=== PATIENT | female | born 1995 | race Caucasian/White ===

== ENCOUNTER 2017-05-31 03:10 | Emergency (ER) | payer BC ==
[~2017-05-31] VITALS: Ht 167.6 cm; Wt 79.3 kg
[2017-05-31 03:13] VITALS: TEMP 37; Ht 167.6 cm; Wt 79.3 kg
[2017-05-31 03:32] VITALS: O2SAT 98
--- NOTE | 2017-05-31 03:56 | EMERGENCY ROOM VISIT NOTE ---
History Report prepared by Hyacinth: Osbaldo Bird Under the Supervision of: Dr. Harjit Poe D.O. First contact with patient: 03:37 Chief Complaint: CHEST PAIN Stated Complaint: CHEST PAIN Nursing Triage Summary: states hx of gastroparesis tonight p[ain got worse with radiation to chest. History of Present Illness The patient is a 22 year old female who presents to the Emergency Room with complaints of worsening abdominal pain that began suddenly 1 hour ago. She rates her pain mild in severity currently. She has a history of gastroparesis. Her pain is now radiating into her chest. She usually tries yoga poses to work the air out, but it did not help. She is currently feeling better. She denies any other symptoms at this time. Source of History: patient Onset: 1 hour ago Position: abdomen Symptom Intensity: mild Quality: pressure Timing: constant Associated Symptoms: + chest pain Note: She denies any other symptoms. Review of Systems See HPI for pertinent positives and negatives. A total of ten systems were reviewed and were otherwise negative. Past Medical & Surgical Medical Problems: (1) Gastroparesis Family History Patient reports no known family medical history. Social History Smoking Status: Never Smoker Smokeless Tobacco Use: No Alcohol Use: none Drug Use: none Marital Status: single Occupation Status: student Current/Historical Medications Scheduled Cholecalciferol (Vitamin D3), 1,000 UNIT PO DAILY Esomeprazole Magnesium (Nexium), 40 MG PO DAILY Levonorgestrel-Ethinyl Estradi (Quasense), 1 TAB PO DAILY Metoclopramide (Reglan), 10 MG PO QD Multivitamin (Multivitamin), 1 TAB PO DAILY Sertraline (Zoloft), 50 MG PO DAILY Allergies Coded Allergies: No Known Allergies (Unverified , 05/31/17) Physical Exam Vital Signs Date Time Temp Pulse Resp B/P (MAP) Pulse Ox O2 Delivery O2 Flow Rate FiO2 05/31/17 04:20 77 18 116/72 98 Room Air 05/31/17 03:35 77 18 142/78 98 Room Air 05/31/17 03:32 98 Room Air 05/31/17 03:32 98 Room Air 05/31/17 03:13 37.0 85 18 138/87 98 Room Air Physical Exam GENERAL: Awake, alert, well-appearing, in no distress HENT: Normocephalic, atraumatic. Oropharynx unremarkable. EYES: Normal conjunctiva. Sclera non-icteric. NECK: Supple. No nuchal rigidity. FROM. No JVD. RESPIRATORY: Clear to auscultation. CARDIAC: Regular rate, normal rhythm. Extremities warm and well perfused. Pulses equal. ABDOMEN: Soft, non-distended. No tenderness to palpation. No rebound or guarding. No masses. RECTAL: Deferred. MUSCULOSKELETAL: Chest examination reveals no tenderness. The back is symmetrical on inspection without obvious abnormality. There is no CVA tenderness to palpation. No joint edema. LOWER EXTREMITIES: Calves are equal size bilaterally and non-tender. No edema. No discoloration. NEURO: Normal sensorium. No sensory or motor deficits noted. SKIN: No rash or jaundice noted. Medical Decision & Procedures Laboratory Results 05/31/17 03:30 05/31/17 03:30 Test 05/31/17 03:30 05/31/17 03:39 Red Blood Count 4.75 M/uL (4.2-5.4) Mean Corpuscular Volume 85.7 fL (80-100) Mean Corpuscular Hemoglobin 26.9 pg (25-34) Mean Corpuscular Hemoglobin Concent 31.4 g/dl (32-36) RDW Standard Deviation 42.8 fL (36.4-46.3) RDW Coefficient of Variation 13.7 % (11.5-14.5) Mean Platelet Volume 10.7 fL (7.4-10.4) Anion Gap 8.0 mmol/L (3-11) Est Creatinine Clear Calc Drug Dose 122.2 ml/min Estimated GFR () 126.8 Estimated GFR (Non- 109.4 BUN/Creatinine Ratio 10.1 (10-20) Calcium Level 9.2 mg/dl (8.5-10.1) Total Bilirubin 0.3 mg/dl (0.2-1) Aspartate Amino Transf (AST/SGOT) 21 U/L (15-37) Alanine Aminotransferase (ALT/SGPT) 17 U/L (12-78) Alkaline Phosphatase 98 U/L (45-117) Total Creatine Kinase 90 U/L (26-192) Creatine Kinase MB < 0.5 ng/ml (0.5-3.6) Creatine Kinase MB Ratio (0-3.0) Total Protein 7.8 gm/dl (6.4-8.2) Albumin 3.7 gm/dl (3.4-5.0) Globulin 4.1 gm/dl (2.5-4.0) Albumin/Globulin Ratio 0.9 (0.9-2) Chemistry Specimen Hemolysis Bedside Troponin I < 0.030 ng/ml (0-0.045) ECG Indication: chest pain Rate (beats per minute): 78 Rhythm: normal sinus Findings: no acute ischemic change, other (Normal intervals, normal axis) ED Course 0337: The patient was evaluated in room B4B. A complete history and physical exam was performed. Medical Decision Differential diagnoses include gastroparesis, gastritis, anxiety, and hypoglycemia. Resting in no distress on repeat examination 4:50 AM patient improved prior to my evaluation. Patient has a history of gastroparesis is much improved Medication Reconcilliation Current Medication List: was personally reviewed by me Blood Pressure Screening Patient's blood pressure: Normal blood pressure Blood pressure disposition: Did not require urgent referral Impression Primary Impression: Midepigastric pain Scribe Attestation The scribe's documentation has been prepared under my direction and personally reviewed by me in its entirety. I confirm that the note above accurately reflects all work, treatment, procedures, and medical decision making performed by me. Departure Information Dispostion Home / Self-Care Referrals No Doctor, Assigned (PCP) Forms HOME CARE DOCUMENTATION FORM, IMPORTANT VISIT INFORMATION Patient Instructions Abdominal Pain - [facility], My [facility]
[2017-05-31 04:03] LABS: HEMATOCRIT 40.7 % (37-47); MEAN CELL VOLUME 85.7 fL (80-100); MEAN CORPUSCULAR HEMOGLOBIN 26.9 pg (25-34); MEAN CORPUSCULAR HGB CONC 31.4 g/dl (32-36); MEAN PLATELET VOLUME 10.7 fL (7.4-10.4); PLATELET COUNT 361 K/uL (130-400); RED BLOOD COUNT 4.75 M/uL (4.2-5.4); WHITE BLOOD COUNT 9.72 K/uL (4.8-10.8)
[2017-05-31] MEDS ORDERED: NXM/40 PO (04:29)
[2017-05-31] MEDS ORDERED: CHOL1000 PO (04:29)
[2017-05-31 04:30] LABS: ALB/GLOB RATIO 0.9 (0.9-2); ALKALINE PHOSPHATASE 98 U/L (45-117); ALT/SGPT 17 U/L (12-78); AST/SGOT 21 U/L (15-37); BLOOD UREA NITROGEN 8 mg/dl (7-18); BUN/CREATININE RATIO 10.1 (10-20); CALCIUM 9.2 mg/dl (8.5-10.1); CARBON DIOXIDE 25 mmol/L (21-32); CHLORIDE 108 mmol/L (98-107); CREATININE 0.78 mg/dl (0.60-1.20); GLUCOSE 97 mg/dl (70-99); POTASSIUM 3.8 mmol/L (3.5-5.1); SODIUM 141 mmol/L (136-145)
[2017-05-31] MEDS ORDERED: MULT-506 PO (04:30)
[2017-05-31] MEDS ORDERED: SERT50TA PO (04:30)
[2017-05-31] MEDS ORDERED: METO-157 PO (04:31)
[2017-05-31] MEDS ORDERED: LEVOTAB10 PO (04:31)
[2017-05-31 04:54] VITALS: BP 129/62; PULSE 68; O2SAT 98
--- NOTE | 2017-05-31 06:55 | DIAGNOSTIC IMAGING REPORT ---
CHEST ONE VIEW PORTABLE CLINICAL HISTORY: CHEST PAIN pain. Dyspnea. COMPARISON STUDY: No previous studies for comparison. FINDINGS: The bones soft tissues and hemidiaphragms are normal. The cardiomediastinal silhouette is normal. The lungs are clear. The pulmonary vasculature is normal. IMPRESSION: Negative chest. The above report was generated using voice recognition software. It may contain grammatical, syntax or spelling errors. Electronically signed by: Prem Acosta M.D. 05/31/2017 6:53 AM Dictated Date/Time: 05/31/2017 6:53 AM
== END 2017-05-31 05:22 | disposition home or self-care (01) ==
LOC: C.EDB 03:12
DX: R10.13 Epigastric pain (principal); K31.84 Gastroparesis; Z79.899 Other long term (current) drug therapy

== ENCOUNTER 2017-07-16 15:05 | Observation (INO) | payer BC ==
[~2017-07-16] VITALS: Ht 167.6 cm; Wt 94.2 kg
[~2017-07-16 15:05] MED LIST: CHOL1000 PO; LEVOTAB10 PO; METO-157 PO; MULT-506 PO; NXM/40 PO; SERT50TA PO
[2017-07-16 15:14] VITALS: Ht 167.6 cm; Wt 94.2 kg
[2017-07-16 15:43] LABS: BASO % 0.5 %; BASO ABS # 0.06 K/uL (0-0.2); COMPLETE YES; EOS % 0.3 %; HEMATOCRIT 39.8 % (37-47); IG% 0.1 %; LYMPH % 18.2 %; LYMPH ABS # 2.01 K/uL (1.2-3.4); MEAN CELL VOLUME 84.1 fL (80-100); MEAN CORPUSCULAR HEMOGLOBIN 27.1 pg (25-34); MEAN CORPUSCULAR HGB CONC 32.2 g/dl (32-36); MEAN PLATELET VOLUME 10.5 fL (7.4-10.4); MONO % 5.1 %; NEUT % 75.8 %; PLATELET COUNT 310 K/uL (130-400); RED BLOOD COUNT 4.73 M/uL (4.2-5.4); WHITE BLOOD COUNT 11.03 K/uL (4.8-10.8)
[2017-07-16 16:01] LABS: BUN/CREATININE RATIO 10.3 (10-20); CREATININE 0.67 mg/dl (0.60-1.20); POTASSIUM 3.5 mmol/L (3.5-5.1)
[2017-07-16] MEDS ORDERED: BCPILLS PO (16:01)
[2017-07-16 16:11] LABS: ALB/GLOB RATIO 0.9 (0.9-2); THYROID STIMULATING HORMONE 1.33 uIu/ml (0.300-4.500)
--- NOTE | 2017-07-16 16:12 | DIAGNOSTIC IMAGING REPORT ---
HEAD CT NONCONTRAST CT DOSE: 638.56 mGycm HISTORY: seizure activity, no history TECHNIQUE: Multiaxial CT images of the head were performed without the use of intravenous contrast. Automated exposure control was utilized for this study. A dose lowering technique was utilized adhering to the principles of ALARA. Comparison: None. Findings: The paranasal sinuses and mastoid air cells are clear. The calvarium and skull base are intact. The ventricles and sulci are within normal limits. There is no mass, hematoma, midline shift, or acute infarct. Impression: No acute intracranial abnormality. If this is the patient's first reported seizure, then consider follow-up nonemergent brain MRI for further evaluation. Electronically signed by: Julio Sandoval M.D. 07/16/2017 4:11 PM Dictated Date/Time: 07/16/2017 4:06 PM
--- NOTE | 2017-07-16 16:23 | EMERGENCY ROOM VISIT NOTE ---
History First contact with patient: 15:14 Chief Complaint: SEIZURE Stated Complaint: SEIZURE Nursing Triage Summary: Patient arrived [facility] omplaints of seizure activity. Per ems report, the patient was in class, laid down on the floor and the classmates surrounding her stated she had seizure like activity for about 10-15 minutes. EMS arrived on scene and patient was 3-4 min. post ictal/lucid at this time and then began having another seizure that lasted roughly 1.5 minutes. Seizures stopped when ems started iv access. Patient has history of gastroparesis, hypoglycemia, and IBS. Patient denies seizre history. Patient states "I just feel weak and tired now." History of Present Illness The patient is a 22 year old female who presents to the Emergency Room via ALS for evaluation of seizure-like activity. Most of the history is obtained by EMS. Per EMS report, the patient was in class and laid down on the floor. Classmates reported that she had seizure-like activity for approximately 10-15 minutes. EMS then arrived on scene and stated that the patient seemed to be postictal, but did answer questions appropriately at that time. They reported that she had additional seizure activity which lasted 1.5 minutes and resolved when they started IV access. The patient denies any memory of the event. She reports that she does not remember being in the class, and her last memory was being in the class prior to that. The patient denies any history of seizures. She states that she feels slightly tired at this time, but has no other complaints. She denies any headaches, neck pain/stiffness, numbness, weakness, chest pain, shortness of breath, fevers, or recent illnesses. She denies any drug or alcohol use. The patient reports a history of gastroparesis, hypoglycemic episodes and IBS. A BSG was checked by EMS and was 71. The patient does report that she has a history of syncopal episodes and reports that she usually feels these coming on and lays on the floor. There was no incontinence. Review of Systems A complete 10 point review of systems was reviewed with the patient with pertinent positives and negatives as per history of present illness. All else were negative. Past Medical/Surgical History Medical Problems: (1) Depression with anxiety (2) Gastroparesis (3) GERD (gastroesophageal reflux disease) (4) Hypoglycemia (5) IBS (irritable bowel syndrome) (6) Seizure-like activity Surgical Problems: (1) H/O esophagogastroduodenoscopy (2) S/P appendectomy (3) S/P cholecystectomy Family History Patient reports no known family medical history. Social History Smoking Status: Never Smoker Alcohol Use: none Drug Use: none Marital Status: single Occupation Status: student Current/Historical Medications Scheduled Control Pills ( Control Pills), 1 TAB PO HS Cholecalciferol (D 5000), 1 TAB PO HS Esomeprazole Magnesium (Nexium), 40 MG PO HS Ferrous Sulfate (Hm Iron Slow Release), 1 TAB PO HS Metoclopramide Hcl (Reglan), 5 MG PO HS Multivitamin (Multivitamin), 1 TAB PO HS Potassium Chloride (K-Tabs), 10 MEQ PO HS Sertraline (Zoloft), 100 MG PO HS Scheduled PRN Erythromycin (Erythromycin), 1-2 TABS PO BID PRN for Nausea or Vomiting Ondansetron Hcl (Zofran), 4 MG PO UD PRN for Nausea Physical Exam Vital Signs Date Time Temp Pulse Resp B/P (MAP) Pulse Ox O2 Delivery O2 Flow Rate FiO2 07/16/17 19:28 94 07/16/17 18:42 91 16 124/91 98 Room Air 07/16/17 16:54 86 16 138/69 95 Room Air 07/16/17 15:26 93 07/16/17 15:14 95 Room Air 07/16/17 15:14 37.0 94 18 121/93 96 Room Air Physical Exam VITALS: Vitals are noted on the nurse's note and reviewed by myself. Vital signs stable. GENERAL: This is a 22-year-old female, in no acute distress, nondiaphoretic, well-developed well-nourished. SKIN: The skin was without rashes, erythema, edema, or bruising. HEAD: Normocephalic atraumatic. EARS: External auditory canals clear, tympanic membranes pearly mortensen without erythema or effusion bilaterally. EYES: Pupils equal round and reactive to light and accommodation. Conjunctivae without injection, sclerae without icterus. Extraocular movements intact. MOUTH: Mucous membranes moist. Tonsils are not enlarged. Pharynx without erythema or exudate. No lacerations of the tongue or cheek. NECK: Supple without nuchal rigidity. No lymphadenopathy. HEART: Regular rate and rhythm without murmurs gallops or rubs. LUNGS: Clear to auscultation bilaterally without wheezes, rales or rhonchi. MUSCULOSKELETAL: Full range of motion throughout. Strength 5/5 throughout. NEURO: Patient was alert and oriented to person place and time. Normal sensation to light and sharp touch. No focal neurological deficits. Medical Decision & Procedures ER Provider Diagnostic Interpretation: HEAD CT NONCONTRAST CT DOSE: 638.56 mGycm HISTORY: seizure activity, no history TECHNIQUE: Multiaxial CT images of the head were performed without the use of intravenous contrast. Automated exposure control was utilized for this study. A dose lowering technique was utilized adhering to the principles of ALARA. Comparison: None. Findings: The paranasal sinuses and mastoid air cells are clear. The calvarium and skull base are intact. The ventricles and sulci are within normal limits. There is no mass, hematoma, midline shift, or acute infarct. Impression: No acute intracranial abnormality. If this is the patient's first reported seizure, then consider follow-up nonemergent brain MRI for further evaluation. Laboratory Results 07/16/17 15:35 Test 07/16/17 15:35 07/16/17 16:16 07/16/17 16:46 Immature Granulocyte % (Auto) 0.1 % White Blood Count 11.03 K/uL (4.8-10.8) Red Blood Count 4.73 M/uL (4.2-5.4) Hemoglobin 12.8 g/dL (12.0-16.0) Hematocrit 39.8 % (37-47) Mean Corpuscular Volume 84.1 fL (80-100) Mean Corpuscular Hemoglobin 27.1 pg (25-34) Mean Corpuscular Hemoglobin Concent 32.2 g/dl (32-36) Platelet Count 310 K/uL (130-400) Mean Platelet Volume 10.5 fL (7.4-10.4) Neutrophils (%) (Auto) 75.8 % Lymphocytes (%) (Auto) 18.2 % Monocytes (%) (Auto) 5.1 % Eosinophils (%) (Auto) 0.3 % Basophils (%) (Auto) 0.5 % Neutrophils # (Auto) 8.36 K/uL (1.4-6.5) Lymphocytes # (Auto) 2.01 K/uL (1.2-3.4) Monocytes # (Auto) 0.56 K/uL (0.11-0.59) Eosinophils # (Auto) 0.03 K/uL (0-0.5) Basophils # (Auto) 0.06 K/uL (0-0.2) Immature Granulocyte # (Auto) 0.01 K/uL (0.00-0.02) Anion Gap 9.0 mmol/L (3-11) Est Creatinine Clear Calc Drug Dose 154.9 ml/min Estimated GFR () 146.7 Estimated GFR (Non- 126.5 BUN/Creatinine Ratio 10.3 (10-20) Calcium Level 9.0 mg/dl (8.5-10.1) Magnesium Level 2.1 mg/dl (1.8-2.4) Total Bilirubin 0.5 mg/dl (0.2-1) Aspartate Amino Transf (AST/SGOT) 12 U/L (15-37) Alanine Aminotransferase (ALT/SGPT) 15 U/L (12-78) Alkaline Phosphatase 85 U/L (45-117) Total Creatine Kinase 63 U/L (26-192) Total Protein 8.0 gm/dl (6.4-8.2) Albumin 3.8 gm/dl (3.4-5.0) Globulin 4.2 gm/dl (2.5-4.0) Albumin/Globulin Ratio 0.9 (0.9-2) Thyroid Stimulating Hormone (TSH) 1.330 uIu/ml (0.300-4.500) Prolactin 4.13 ng/mL Human Chorionic Gonadotropin, Qual NEG (NEG) Urine Color YELLOW Urine Appearance CLEAR (CLEAR) Urine pH 7.5 (4.5-7.5) Urine Specific Garrison 1.014 (1.000-1.030) Urine Protein NEG (NEG) Urine Glucose (UA) NEG (NEG) Urine Ketones NEG (NEG) Urine Occult Blood NEG (NEG) Urine Nitrite NEG (NEG) Urine Bilirubin NEG (NEG) Urine Urobilinogen NEG (NEG) Urine Leukocyte Esterase NEG (NEG) Urine Test NEG (NEG) Bedside Troponin I < 0.030 ng/ml (0-0.045) Urine Opiates Screen NEG (NEG) Urine Methadone, Qualitative NEG (NEG) Urine Barbiturates NEG (NEG) Urine Phencyclidine (PCP) Level NEG (NEG) Ur Amphetamine/Methamphetamine NEG (NEG) MDMA (Ecstasy) Screen NEG (NEG) Urine Benzodiazepines Screen NEG (NEG) Urine Cocaine Metabolite NEG (NEG) Urine Marijuana (THC) POS (NEG) ECG Rate (beats per minute): 83 Rhythm: normal sinus (sinus arrhythmia) Findings: no acute ischemic change, no ectopy Change: no significant change ED Course The patient was evaluated as above. Labs were drawn and IV access was obtained. CT of the head was performed and read by radiology as above. The patient was reevaluated and has no complaints. A meal tray was ordered. Patient began complaining of stabbing chest pain. [id number] troponin was ordered. The patient was then reevaluated by myself and states that this chest pain has completely resolved without treatment. The patient's case was discussed with Dr. Ricks. She recommended admission, as the patient has not technically had 2 seizures and the first lasted for greater than 10 minutes, which meets criteria for status epilepticus. Case was discussed with the [facility] hospitalist, Starla Espinoza. They agreed to evaluate the patient for admission. Medical Decision Differential diagnosis includes seizure disorder, malignancy, mass, infection, hypoglycemia, syncope, pseudoseizure, among others. The patient is a 22-year-old female who presents today complaining of possible seizure. Labs revealed mild leukocytosis, likely stress related. No other significant laboratory abnormalities. Urinalysis was not suggestive of infection. Urine was negative. EKG was interpreted by myself and shows a normal sinus rhythm. CT of the head was unremarkable. There is no evidence of infection on exam. Patient is not hypoglycemic. She had no recurrent seizure-like activity during her ED stay. I did speak with the neurologist oncology transplant network manager who recommended admission for further work up of this. Consultation was made with the hospitalist service, who admitted the patient for further evaluation and care. Medication Reconcilliation Current Medication List: was personally reviewed by me Blood Pressure Screening Patient's blood pressure: Normal blood pressure Impression Primary Impression: Seizure Departure Information Referrals No Doctor, Assigned (PCP) Patient Instructions My [facility]
[2017-07-16 16:46] LABS: PREG INTERNAL NEGATIVE QC NEG CLEAR BACKGROUND; PREG INTERNAL POSITIVE QC POS CONTROL LINE
[2017-07-16 17:25] LABS: URINE APPEARANCE CLEAR (CLEAR); URINE BILIRUBIN NEG (NEG); URINE COLOR YELLOW; URINE NITRITE NEG (NEG); URINE PH 7.5 (4.5-7.5); URINE SPECIFIC GRAVITY 1.014 (1.000-1.030); UROBILINOGEN NEG (NEG); ZZUR CULT IF INDIC CLEAN CATCH NO
[2017-07-16 17:38] LABS: MANUAL MICROSCOPIC REQUIRED? NO; REVIEW REQ? NO
[2017-07-16] MEDS ORDERED: ENOXAPARIN 40 MG/0.4 ML SYR SC SCH (19:45)
[2017-07-16] MEDS ORDERED: MCRK/10 PO (19:59)
[2017-07-16] MEDS ORDERED: FERR1TAB PO (19:59)
[2017-07-16] MEDS ORDERED: SERT-234 PO (19:59)
[2017-07-16] MEDS ORDERED: METO1TAB54 PO (19:59)
[2017-07-16] MEDS ORDERED: ERYCHP PO (19:59)
[2017-07-16] MEDS ORDERED: METO5TAB3 PO (19:59)
[2017-07-16] MEDS ORDERED: ONDA4TAB46 PO (19:59)
[2017-07-16] MEDS ORDERED: CHOLCAP10 PO (19:59)
[2017-07-16 20:30] LABS: BENZODIAZEPINE, URINE NEG (NEG); COCAINE,URINE NEG (NEG); PHENCYCLIDINE, URINE NEG (NEG)
[2017-07-16] MEDS ORDERED: ONDANSETRON 4 MG TAB PO PRN (20:30)
[2017-07-16] MEDS ORDERED: ERYTHROMYCIN DELAYED RELEASE 250 MG CAP PO PRN (20:30)
[2017-07-16 20:50] VITALS: BP 129/77; PULSE 95; TEMP 36.9; O2SAT 98
[2017-07-16] MEDS ORDERED: POTASSIUM CHLORIDE 10 MEQ TABCR PO SCH (21:00)
[2017-07-16] MEDS ORDERED: METOCLOPRAMIDE HCL 5 MG TAB PO SCH (21:00)
[2017-07-16] MEDS ORDERED: FERROUS SULFATE 325 MG TAB PO SCH (21:00)
[2017-07-16] MEDS ORDERED: SERTRALINE HCL 100 MG TAB PO SCH (21:00)
[2017-07-16] MEDS ORDERED: CHOLECALCIFEROL 1000 INTER.UNIT TAB PO SCH (21:00)
[2017-07-16] MEDS ORDERED: MULTIVITAMIN TAB PO SCH (21:00)
[2017-07-16] MEDS ORDERED: IV FLUIDS COMPLETED PRN (21:15)
[2017-07-16] MEDS ORDERED: DEXTROSE 50% 50 ML SYR IV PRN (21:15)
[2017-07-16] MEDS ORDERED: GLUCOSE 10 TABS/TUBE PO PRN (21:15)
[2017-07-16] MEDS ORDERED: GLUCAGON FOR INJ 1 MG VIAL SQ PRN (21:15)
[2017-07-16] MEDS ORDERED: GLUCOSE 40% GEL 15 GM TUBE PO PRN (21:15)
--- NOTE | 2017-07-16 21:19 | History and Physical ---
History & Physical Date & Time of Service: Jul 16, 2017 at 19:59 Chief Complaint: Seizure Primary Care Physician: No Doctor, Assigned History of Present Illness Source: patient, clinic records, EMS This is a 22 y/o fmeale with PMH of gastroparesis, GERD, IBS, hypoglycemic episodes, who presents to the ED by ambulance for seizure like activity. Pt does not recall the episodes. She lasts remembers going to her 1st class today. Does not remember leaving 1st class and going to 2nd class. Pt states in her 2nd class her friend witnessed her standing up and laying herself on the floor. Per ER provider, EMS reported that classmates witnessed her having 10-15 minutes of seizure like activity. Reportedly when EMS arrived she was postictal then had additional 1.5 minutes of seizure activity. No meds were administered. There was no tongue biting or incontinence. Glucose was 71 in the field. The next thing patient remembers is awakening in the ambulance, feeling cold and tired. She reports feeling better after eating and resting in ER. She had not eaten anything earlier today. Pt has ongoing frequent nausea and vomiting, last episode 1-2 nights ago. Pt states 4 years ago she had weight loss and nausea and was diagnosed with gastroparesis. Has seen multiple GI providers, one being [facility], does not recall others. Pt reports hypoglycemic episodes for past 2 years. She states every few weeks she feels lightheaded and clammy, lays herself down, ? loses consciousness, but starts to "come to" when she drinks orange juice. Her blood sugar is low with the episodes, 40 at the lowest. She states she has been worked up with EKG's and labs. Pt does not recall having a brain MRI in the past. No known hx of seizures. Pt has been stressed about exams this week but otherwise anxiety and depression have been controlled. Pt denies headache, neck pain or stiffness, vision change, focal weakness or numbness, fever, URI symptoms, cough, SOB, chest pain, palpitations abdominal pain, diarrhea, constipation, dysuria, frequency, urgency, arthralgias. Pt was hospitalized at [facility] in summer 2016 but does not recall the details. Past Medical/Surgical History Medical Problems: (1) Depression with anxiety Status: Chronic (2) Gastroparesis Status: Chronic (3) GERD (gastroesophageal reflux disease) Status: Chronic (4) Hypoglycemia Status: Chronic (5) IBS (irritable bowel syndrome) Status: Chronic Surgical Problems: (1) H/O esophagogastroduodenoscopy Status: Chronic (2) S/P appendectomy Status: Chronic (3) S/P cholecystectomy Status: Chronic Family History FH: seizures MATERNAL COUSIN Social History Smoking Status: Never Smoker Alcohol Use: none Drug Use: marijuana (last marijuana use 2-3 days ago. denies any other illicit drugs. ) Marital Status: single Housing status: lives with significant other (with boyfriend) Occupational Status: [employer] student Allergies Coded Allergies: No Known Allergies (Unverified , 05/31/17) Home Medications Scheduled Control Pills ( Control Pills), 1 TAB PO HS Cholecalciferol (D 5000), 1 TAB PO HS Esomeprazole Magnesium (Nexium), 40 MG PO HS Ferrous Sulfate (Hm Iron Slow Release), 1 TAB PO HS Metoclopramide Hcl (Reglan), 5 MG PO HS Multivitamin (Multivitamin), 1 TAB PO HS Potassium Chloride (K-Tabs), 10 MEQ PO HS Sertraline (Zoloft), 100 MG PO HS Scheduled PRN Erythromycin (Erythromycin), 1-2 TABS PO BID PRN for Nausea or Vomiting Ondansetron Hcl (Zofran), 4 MG PO UD PRN for Nausea Review of Systems Ten systems reviewed and negative except as noted in HPI. Physical Exam Vital Signs Date Time Temp Pulse Resp B/P (MAP) Pulse Ox O2 Delivery O2 Flow Rate FiO2 07/16/17 19:28 94 07/16/17 18:42 91 16 124/91 98 Room Air 07/16/17 16:54 86 16 138/69 95 Room Air 07/16/17 15:26 93 07/16/17 15:14 95 Room Air 07/16/17 15:14 37.0 94 18 121/93 96 Room Air General Appearance: WD/WN, no apparent distress Head: normocephalic, atraumatic Eyes: normal inspection, PERRL, EOMI, sclerae normal ENT: normal ENT inspection (normal external ears, nose, lips), hearing grossly normal, pharynx normal, + pertinent finding (no evidence of tongue trauma) Neck: supple, trachea midline Respiratory/Chest: lungs clear, normal breath sounds, no respiratory distress, no accessory muscle use Cardiovascular: regular rate, rhythm, no murmur Abdomen/GI: normal bowel sounds, non tender, soft Extremities/Musculoskelatal: no calf tenderness, no pedal edema Neurologic/Psych: community administrator II-XII nml as tested, no motor/sensory deficits, alert, normal mood/affect, oriented x 3 Skin: normal color, warm/dry Diagnostics Laboratory Results Results Past 24 Hours Test 07/16/17 15:35 07/16/17 16:16 07/16/17 16:46 Range/Units White Blood Count 11.03 4.8-10.8 K/uL Red Blood Count 4.73 4.2-5.4 M/uL Hemoglobin 12.8 12.0-16.0 g/dL Hematocrit 39.8 37-47 % Mean Corpuscular Volume 84.1 80-100 fL Mean Corpuscular Hemoglobin 27.1 25-34 pg Mean Corpuscular Hemoglobin Concent 32.2 32-36 g/dl Platelet Count 310 130-400 K/uL Mean Platelet Volume 10.5 7.4-10.4 fL Neutrophils (%) (Auto) 75.8 % Lymphocytes (%) (Auto) 18.2 % Monocytes (%) (Auto) 5.1 % Eosinophils (%) (Auto) 0.3 % Basophils (%) (Auto) 0.5 % Neutrophils # (Auto) 8.36 1.4-6.5 K/uL Lymphocytes # (Auto) 2.01 1.2-3.4 K/uL Monocytes # (Auto) 0.56 0.11-0.59 K/uL Eosinophils # (Auto) 0.03 0-0.5 K/uL Basophils # (Auto) 0.06 0-0.2 K/uL RDW Standard Deviation 42.3 36.4-46.3 fL RDW Coefficient of Variation 13.8 11.5-14.5 % Immature Granulocyte % (Auto) 0.1 % Immature Granulocyte # (Auto) 0.01 0.00-0.02 K/uL Sodium Level 141 136-145 mmol/L Potassium Level 3.5 3.5-5.1 mmol/L Chloride Level 110 98-107 mmol/L Carbon Dioxide Level 22 21-32 mmol/L Anion Gap 9.0 3-11 mmol/L Blood Urea Nitrogen 7 7-18 mg/dl Creatinine 0.67 0.60-1.20 mg/dl Est Creatinine Clear Calc Drug Dose 154.9 ml/min Estimated GFR () 146.7 Estimated GFR (Non- 126.5 BUN/Creatinine Ratio 10.3 10-20 Random Glucose 78 70-99 mg/dl Calcium Level 9.0 8.5-10.1 mg/dl Magnesium Level 2.1 1.8-2.4 mg/dl Total Bilirubin 0.5 0.2-1 mg/dl Aspartate Amino Transf (AST/SGOT) 12 15-37 U/L Alanine Aminotransferase (ALT/SGPT) 15 12-78 U/L Alkaline Phosphatase 85 45-117 U/L Total Protein 8.0 6.4-8.2 gm/dl Albumin 3.8 3.4-5.0 gm/dl Globulin 4.2 2.5-4.0 gm/dl Albumin/Globulin Ratio 0.9 0.9-2 Thyroid Stimulating Hormone (TSH) 1.330 0.300-4.500 uIu/ml Human Chorionic Gonadotropin, Qual NEG NEG Urine Color YELLOW Urine Appearance CLEAR CLEAR Urine pH 7.5 4.5-7.5 Urine Specific [place] 1.014 1.000-1.030 Urine Protein NEG NEG Urine Glucose (UA) NEG NEG Urine Ketones NEG NEG Urine Occult Blood NEG NEG Urine Nitrite NEG NEG Urine Bilirubin NEG NEG Urine Urobilinogen NEG NEG Urine Leukocyte Esterase NEG NEG Urine Test NEG NEG Bedside Troponin I < 0.030 0-0.045 ng/ml Diagnostic Radiology HEAD CT NONCONTRAST CT DOSE: 638.56 mGycm HISTORY: seizure activity, no history TECHNIQUE: Multiaxial CT images of the head were performed without the use of intravenous contrast. Automated exposure control was utilized for this study. A dose lowering technique was utilized adhering to the principles of ALARA. Comparison: None. Findings: The paranasal sinuses and mastoid air cells are clear. The calvarium and skull base are intact. The ventricles and sulci are within normal limits. There is no mass, hematoma, midline shift, or acute infarct. Impression: No acute intracranial abnormality. If this is the patient's first reported seizure, then consider follow-up nonemergent brain MRI for further evaluation. EKG sinus rhythm with sinus arrhythmia, 83 bpm, no significant change from prior EKG May 31 2017, as confirmed by cardiology read, also interpreted by me Impression Assessment and Plan NEW ONSET SEIZURE ACTIVITY Reportedly had 10-15 minute episode of seizure activity witnessed by classmates , then 1.5 minute episode witnessed by EMS, however no tongue biting or incontinence Labs- BSG 71 per EMS and random glucose 78 in ER, electrolytes wnl, TSH wnl, drug screen + marijuana, otherwise negative CT head- no acute findings Pt takes multiple meds which can have side effect of seizure (Zoloft, Zofran PRN , Reglan, erythromycin PRN), OK to continue these as per neuro Consult neurology; discussed with Dr. Ricks, appreciate input, will obtain EEG, MRI brain, check CK and prolactin, would load with Keppra if develops another seizure episode Seizure precautions HYPOGLYCEMIC EPISODES Unclear workup in the past- pt is new to Dr. Brown, was seeing [facility] previously- will obtain records; hospitalized at [facility] in February or March 2017- will obtain records Random glucose is 78 in ER Monitor BSG q4h, hypoglycemic protocol PRN GASTROPARESIS Has seen multiple GI providers, in remote past saw [facility] for IBS Continue PRN Zofran, PRN erythromycin Hold Reglan as per Dr. Brown's note (was d/c'ed 07/15/17 due to termite control representative risk of tardive dyskinesia, however patient is still taking) States Dr. Brown has placed referral for [facility] GERD Continue PPI DEPRESSION/ ANXIETY Continue Zoloft DVT PROPHYLAXIS Ambulatory/SCDs DISPOSITION Observation telemetry PCP is Dr. Brown Patient seen in collaboration with Dr. Coreas. Please see her addendum. ADDENDUM: I have seen and examined the patient and agree with the assessment and plan as above. Boyfriend who lives with her reports a 10 minute episode similar to today's episode that occurred two months ago where she was on the floor, not responsive, and her eyes were shaking. This is a situation that has been going on with her since she has had the low blood sugar episodes. She denies workup by an Endo in the past for the hypoglycemia--would be important here in the setting of seizures. She also has idiopathic gastroparesis for the last two years for which she takes Reglan consistently, another possible cause for problem. This was initially held, but she reports getting violently ill without it and requested it tonight. Will defer management to Dr. Ricks. Wet read of brain MRI looks clear. Physical exam is unremarkable-very bright girl with no neuro deficits. She is positive for MJ and smokes this regularly which I did not go into in front of her family. This may be another possible etiology of symptoms, especially if laced with something? Boyfriend doesn't think she manages her stress level well and this is associated with her nausea. Pt states that she knows coping strategies and is yoga certified. Main driving factor of her stress level is being in the dark about her medical issues and not knowing what to expect on any given day. Urged her to stay with consistent PCP-Dr. Brown. Plans to see Gastroparesis specialist at [facility]. No AEDs at this time unless further seizure activity overnight. Plan for EEG in am. Joss, DO Level of Care Telemetry Resuscitation Status FULL RESUSCITATION VTE Prophylaxis VTE Risk Assessment Done? Y/N: Yes Risk Level: Moderate Given or contraindicated: SCD's
[2017-07-16] MEDS: ACETAMINOPHEN 325 MG TAB PO PRN (21:29)
[2017-07-16] MEDS ORDERED: GADAVIST IV PRN (22:25)
[2017-07-16] MEDS ORDERED: METOCLOPRAMIDE HCL 5 MG TAB PO ONE (23:30)
[2017-07-16 23:32] VITALS: BP 130/85; PULSE 86; TEMP 36.5; O2SAT 97
[2017-07-16 23:37] LABS: HEMATOCRIT 36.4 % (37-47); MEAN CELL VOLUME 83.9 fL (80-100); MEAN CORPUSCULAR HEMOGLOBIN 27.9 pg (25-34); MEAN CORPUSCULAR HGB CONC 33.2 g/dl (32-36); MEAN PLATELET VOLUME 10.1 fL (7.4-10.4); PLATELET COUNT 298 K/uL (130-400); RED BLOOD COUNT 4.34 M/uL (4.2-5.4); WHITE BLOOD COUNT 10.86 K/uL (4.8-10.8)
[2017-07-16 23:45] LABS: PROTHROMBIN TIME (PATIENT) 10.4 SECONDS (9.0-12.0)
[2017-07-17] VITALS (9 sets, daily range): BP systolic 115–128; BP diastolic 76–80; PULSE 80–95; TEMP 36.5–37; O2SAT 91–98
--- NOTE | 2017-07-17 00:15 | DIAGNOSTIC IMAGING REPORT ---
BRAIN COMBO FOR SEIZURE HISTORY: 22 years-old Female seizure acute seizure with headache COMPARISON: CT head of same day TECHNIQUE: Multiplanar multisequence MRI of the brain was obtained both with and without the use of 9.4 mL Gadavist utilizing institutional seizure protocol FINDINGS: No restricted diffusion to suggest acute ischemia. Midline structures including the corpus callosum, brainstem, optic chiasm, infundibulum, pituitary and pineal gland are unremarkable in the sagittal T1 sequence. No cerebellar tonsillar herniation. Imaged cervical spine appears unremarkable. No acute intracranial hemorrhage, midline shift, abnormal extra-axial collections or hydrocephalus. There is a focal area of cortically based somewhat bubbly appearing circumscribed increased T2/FLAIR signal noted within the paracentral left frontal lobe near the vertex as seen on image 20 of series 5 and image 15 of series 8 demonstrating slightly decreased T1 signal measuring 0.9 x 0.5 x 0.8 cm without appreciable enhancement or calcifications. No additional focal signal abnormalities of the brain parenchyma. Bilateral hippocampi appear normal. No evidence of mesial temporal sclerosis. Major flow voids at the level of the skull base appear normal. Moderate polypoid mucosal thickening of the inferior left maxillary sinus. Mild posterior right ethmoid sinus disease. Mastoid air cells are clear. Scalp and soft tissues are unremarkable. IMPRESSION: 1. 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 Neurological consultation recommended. 2. No restricted diffusion, midline shift or significant edema The above report was generated using voice recognition software. It may contain grammatical, syntax or spelling errors. Electronically signed by: Manpreet Rebolledo M.D. 07/17/2017 12:14 AM Dictated Date/Time: 07/16/2017 11:38 PM
[2017-07-17] MEDS: ACETAMINOPHEN 325 MG TAB PO PRN ×2 (05:49→15:30)
[2017-07-17 06:16] LABS: BLOOD UREA NITROGEN 6 mg/dl (7-18); BUN/CREATININE RATIO 10.4 (10-20); CALCIUM 8.9 mg/dl (8.5-10.1); CARBON DIOXIDE 22 mmol/L (21-32); CHLORIDE 110 mmol/L (98-107); CREATININE 0.62 mg/dl (0.60-1.20); GLUCOSE 84 mg/dl (70-99); MAGNESIUM 2.3 mg/dl (1.8-2.4); POTASSIUM 3.7 mmol/L (3.5-5.1); SODIUM 140 mmol/L (136-145)
[2017-07-17 07:15] LABS: HEMATOCRIT 37.1 % (37-47); MEAN CELL VOLUME 84.5 fL (80-100); MEAN CORPUSCULAR HEMOGLOBIN 27.3 pg (25-34); MEAN CORPUSCULAR HGB CONC 32.3 g/dl (32-36); MEAN PLATELET VOLUME 10.6 fL (7.4-10.4); PLATELET COUNT 312 K/uL (130-400); RED BLOOD COUNT 4.39 M/uL (4.2-5.4); WHITE BLOOD COUNT 8.91 K/uL (4.8-10.8)
[2017-07-17] MEDS ORDERED: JUNEL FE PO SCH (09:00)
[2017-07-17] MEDS ORDERED: PANTOprazole SOD 40 MG TAB PO SCH (09:00)
[2017-07-17] MEDS ORDERED: LORAZEPAM INJ 1 MG in SYRINGE 0.5 ML IV PRN (09:45)
--- NOTE | 2017-07-17 09:49 | ELECTROENCEPHALOGRAPH REPORT ---
REQUESTING PHYSICIAN: Demetris West MD CLINICAL DIAGNOSIS: Possible seizure activity. ELECTROENCEPHALOGRAM DIAGNOSIS: Essentially normal during wakefulness. DESCRIPTION OF TRACING: This EEG was done as a bedside recording and was of good technical quality. There were few muscle movement artifacts captured both by video analysis and on the EEG itself. Photic stimulation is the only stimulus parameter utilized. Hyperventilation was not performed. Drowsiness and light sleep were not obtained. Under these conditions, there is evidence for a normal appearing background rhythm in the alpha range which is of up to 50 microvolts of maximum amplitude and 10-11 Hz of maximum frequency. This is slightly higher in amplitude over the right posterior head regions but is otherwise bilaterally symmetrical and maximum in these zones. Mid frequency to upper frequency modest voltage theta activity is seen over the central regions without further regional or focal predominance. Anterior head region maximum bilaterally symmetrical low voltage fast activity in the beta range is present. Photic stimulation provoked some modest driving response without a photomyogenic or photoparoxysmal component. At no time during the waking tracing is there evidence for clearcut potentially epileptogenic activity in the form of polyspike or spike wave bursts, focal sharp waves or focal spikes. INTERPRETATION: This EEG is essentially normal during wakefulness without evidence for focal or generalized encephalopathy and without evidence for potentially epileptogenic activity. The absence of the latter; however, does not exclude the diagnosis of seizure disorder and clinical correlation is required.
--- NOTE | 2017-07-17 16:01 | Neurology Consultation ---
Neurology Consultation Date of Consultation: Jul 17, 2017. Attending Physician: Demetris West M.D. Primary Care Physician: No Doctor, Assigned Reason for Consultation: new onset seizure History of Present Illness Source: patient, family, friend Carmen is a 22 year old female with PMH: gastroparesis, GERD, IBS, hypoglycemic episodes, who presents to the ED by ambulance for seizure like activity. She lasts remembers going to her 1st class today. She doesn't remember walking to the 2nd class or being in the second class. She stood up and then her friend witnessed her laying herself on the floor. No memory of anything until she was in the ambulance although she was told she was talking to EMS. Her classmate state she had a witness seizure of 10-15 minutes. Reportedly when EMS arrived she was postictal then had additional 1.5 minutes of seizure activity. There was no tongue biting or incontinence. Glucose was 71 in the field. When she woke in the ambulance, feeling cold and tired. She had not eaten anything earlier today. She has ongoing frequent nausea and vomiting, last episode 1-2 nights ago. 4 years ago she had weight loss and nausea and was diagnosed with gastroparesis. Has seen multiple GI providers, one being Sherine. She also states she has hypoglycemic episodes for past 2 years. She states every few weeks she feels lightheaded and clammy, lays herself down, loses consciousness but starts to "come to" when she drinks orange juice. Her blood sugar is low with the episodes, 40 at the lowest. She states she has been worked up with EKG's and labs. She had never had an MRI brain. No known hx of seizures. but mom states there is a family history of seizures cousins. she has been stressed about exams this week but otherwise anxiety and depression have been controlled. denies headache, neck pain or stiffness, vision change, focal weakness or numbness, fever, SOB, CP, palpitations abdominal pain, diarrhea, constipation. She was hospitalized at [facility] in summer 2016 but does not recall the details. Past Medical/Surgical History Medical Problems: (1) Midepigastric pain Status: Acute (2) Seizure Status: Acute Social History Smoking Status: Current every day smoker Alcohol Use: none Drug Use: marijuana (last marijuana use 2-3 days ago. denies any other illicit drugs. ) Marital Status: single Occupation Status: [employer] student Allergies Coded Allergies: No Known Allergies (Unverified , 05/31/17) Current Inpatient Medications Current Inpatient Medications Medications (Trade) Dose Ordered Sig/[place] Route Start Time Stop Time Status Last Admin Dose Admin Acetaminophen (Tylenol Tab) 650 mg Q4H PRN PO 07/16/17 19:45 08/15/17 19:44 07/17/17 15:30 650 MG Erythromycin (Eryc Delayed Rel Cap) 1-2 caps BID PRN N/V BID PRN PO 07/16/17 20:30 08/15/17 20:29 Multivitamins (Multivitamin Tab) 1 tab HS PO 07/16/17 21:00 08/15/17 20:59 07/16/17 23:48 1 TAB Ondansetron HCl (Zofran Tab) 4 mg Q6H PRN PO 07/16/17 20:30 08/15/17 20:29 Sertraline HCl (Zoloft Tab) 100 mg HS PO 07/16/17 21:00 08/15/17 20:59 07/16/17 23:48 100 MG Cholecalciferol (Vitamin D Tab) 5,000 inter.unit HS PO 07/16/17 21:00 08/15/17 20:59 07/16/17 23:50 5,000 INTER.UNIT Pantoprazole Sodium (Protonix Tab) 40 mg QAM PO 07/17/17 09:00 08/16/17 08:59 07/17/17 08:10 40 MG Ferrous Sulfate (Feosol Tab) 325 mg HS PO 07/16/17 21:00 08/15/17 20:59 07/16/17 23:49 325 MG Potassium Chloride (Klor-Con M10) 10 meq HS PO 07/16/17 21:00 08/15/17 20:59 07/16/17 23:48 10 MEQ Miscellaneous (Iv Fluids Completed) 1 ea PRN PRN N/A 07/16/17 21:15 07/16/18 21:14 Glucose (Glucose 40% Gel) 15-30 GRAMS 15 GRAMS... UD PRN PO 07/16/17 21:15 08/15/17 21:14 Glucose (Glucose Chew Tab) 4-8 Tablets 4 Tabl... UD PRN PO 07/16/17 21:15 08/15/17 21:14 Dextrose (Dextrose 50% 50ML Syringe) 25-50ML OF 50% DW IV FOR... UD PRN IV 07/16/17 21:15 08/15/17 21:14 Glucagon (Glucagon Inj) 1 mg UD PRN SQ 07/16/17 21:15 08/15/17 21:14 Gadobutrol (Gadavist) 9.4 mmol UD PRN IV 07/16/17 22:25 07/20/17 22:24 Metoclopramide HCl (Reglan Tab) 5 mg HS PO 07/17/17 21:00 08/16/17 20:59 Ethinyl Estradiol/ Norethindrone (Junel Fe 10/11 (28 Day)) 1 tab DAILY PO 07/17/17 09:00 08/16/17 08:59 07/17/17 08:10 1 TAB Lorazepam 1 mg/ Syringe 1 ml @ 0.5 mls/min Q30M PRN IV 07/17/17 09:45 08/16/17 09:44 Physical Exam Vital Signs (Past 24 Hrs): Date Time Temp Pulse Resp B/P (MAP) Pulse Ox O2 Delivery O2 Flow Rate FiO2 07/17/17 15:24 36.5 84 16 128/77 (94) 98 Room Air 07/17/17 12:30 Room Air 07/17/17 11:54 37.0 80 16 116/77 (90) 97 Room Air 07/17/17 11:12 98 Room Air 07/17/17 07:45 Room Air 07/17/17 07:30 36.7 92 16 125/80 (95) 98 Room Air 07/17/17 04:32 36.8 95 18 118/79 (92) 97 Room Air 07/17/17 04:00 Room Air 07/17/17 00:00 Room Air 07/16/17 23:32 36.5 86 16 130/85 (100) 97 Room Air 07/16/17 20:50 36.9 95 18 129/77 (94) 98 Room Air 07/16/17 20:30 Room Air 07/16/17 20:09 90 17 125/74 99 07/16/17 19:28 94 07/16/17 18:42 91 16 124/91 98 Room Air 07/16/17 16:54 86 16 138/69 95 Room Air Physical Exam: Constitutional: appearance nourished, healthy and normal Ears, Nose, Mouth and Throat: mucous membranes moist, no injection and skin normal, eyes normal Cardiovascular: normal S-1 and S-2 and regular rate and rhythm Respiratory: clear to auscultation (CTA) and no rales, rhonchi or wheeze Musculoskeletal: no peripheral edema and good distal pulses Skin: no stigmata of neurocutaneous disease noted and normal and intact Eyes: extraocular muscles intact (EOMI) and pupils equal, round and reactive to light (PERRL) NEUROLOGIC EXAMINATION: Mental status: Alert and interactive Oriented to full date and location Oriented to person Speech fluent with no evidence of aphasia Cranial Nerves smile, eye brow raise symmetric tongue midline Reflexes: Deep tendon reflexes were symmetrical and graded 2/5. Sensory: cool touch and light touch Coordination: Romberg absent Gait/Stance: Posture normal. Gait normal: with steady with steps, base, turning, heel and toe walking and tandem gait. Motor: Negative for pronator drift of out stretched arms with eyes closed. Strength: biceps triceps deltoids hand cutting table operator first 5/5 bilaterally, hip flex plantar flex ext 5/ 5 bilaterally Laboratory Results Past 24 Hours: 07/17/17 05:26 07/17/17 05:26 Test 07/16/17 16:16 07/16/17 16:46 07/16/17 23:20 07/17/17 05:26 Human Chorionic Gonadotropin, Qual NEG (NEG) Urine Color YELLOW Urine Appearance CLEAR (CLEAR) Urine pH 7.5 (4.5-7.5) Urine Specific [place] 1.014 (1.000-1.030) Urine Protein NEG (NEG) Urine Glucose (UA) NEG (NEG) Urine Ketones NEG (NEG) Urine Occult Blood NEG (NEG) Urine Nitrite NEG (NEG) Urine Bilirubin NEG (NEG) Urine Urobilinogen NEG (NEG) Urine Leukocyte Esterase NEG (NEG) Urine Test NEG (NEG) Bedside Troponin I < 0.030 ng/ml (0-0.045) Urine Opiates Screen NEG (NEG) Urine Methadone, Qualitative NEG (NEG) Urine Barbiturates NEG (NEG) Urine Phencyclidine (PCP) Level NEG (NEG) Ur Amphetamine/Methamphetamine NEG (NEG) MDMA (Ecstasy) Screen NEG (NEG) Urine Benzodiazepines Screen NEG (NEG) Urine Cocaine Metabolite NEG (NEG) Urine Marijuana (THC) POS (NEG) Prothrombin Time 10.4 SECONDS (9.0-12.0) Prothromb Time International Ratio 1.0 (0.9-1.1) Red Blood Count 4.39 M/uL (4.2-5.4) Mean Corpuscular Volume 84.5 fL (80-100) Mean Corpuscular Hemoglobin 27.3 pg (25-34) Mean Corpuscular Hemoglobin Concent 32.3 g/dl (32-36) RDW Standard Deviation 44.3 fL (36.4-46.3) RDW Coefficient of Variation 14.3 % (11.5-14.5) Mean Platelet Volume 10.6 fL (7.4-10.4) Nucleated RBC Absolute Count (auto) 0.00 K/uL (0-0) Nucleated Red Blood Cells % 0.0 % Anion Gap 8.0 mmol/L (3-11) Est Creatinine Clear Calc Drug Dose 167.3 ml/min Estimated GFR () > 150.0 Estimated GFR (Non- 129.8 BUN/Creatinine Ratio 10.4 (10-20) Calcium Level 8.9 mg/dl (8.5-10.1) Magnesium Level 2.3 mg/dl (1.8-2.4) Test 07/17/17 11:32 Bedside Glucose 84 mg/dl (70-90) Imaging MRI brain combo- Focal nonenhancing cortically based cystic-appearing lesion within the paracentral left frontal lobe near the vertex as above measuring up to 0.9 cm is suspicious for a 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 Neurological consultation recommended. 2. No restricted diffusion, midline shift or significant edema CT head- No acute intracranial abnormality. If this is the patient's first reported seizure, then consider follow-up nonemergent brain MRI for further evaluation Impression 22 year old female with new onset seizure and cortical lesion Plan 1. MRI combo with lesions- will push to PACS [facility] for further review by neurosurgeon 2. start Keppra 500 mg BID will need to watch for mood issues 3. no driving for 6 months 4. no swimming alone, no bathing alone, no heights 5. will need follow up with neurosurgery they are from [facility] so likely will follow there I have seen and discussed above patient with Dr Barbara Ricks, neurology pt seen and examined. I spent an additional 45 min with pt and mother. witnessed 10-15 min sz with no incont, injury. some confusion and pt is partially amnestic until waking up in ambulance. the pt was said to have another brief episode when machine applicator cementer arrived. 1 1/2 month ago the pt boyfriend witnessed an episode of pt stiffening up with eyes rolling back in to head lasting a few minutes and without confusion. Pt indicated her bs was in the 40s and she alerted before eating anything. On this admission, glucose, prolactin and CPK were normal.Pt has a high left frontal lesion without enhancement. Pt gives a hx of multiple episodes x 2 years of a sense that bs is low for which she lays herself on floor, is unresponsive for a few seconds, sweaty and improves even before she eats anything. Exam is normal. The presence of the l frontal cortical lesion raises the index of suspicion that this was a sz. Tracey harris, monitor for mood changes, if so lamictal might be an option but is much slower in titration. Discussed sz, safety, when to call 911. NS will review images and we will have pt seen by the dept. I suspect they will rec a repeat MRI brain in 2-3 months. Conitnue to monitor for hypoglycemia with episodes. PARMINDER Ricks MD
[2017-07-17] MEDS ORDERED: IBUPROFEN 600 MG TAB PO ONE (19:45)
[2017-07-17] MEDS ORDERED: LEVE500T PO (20:28)
--- NOTE | 2017-07-17 20:43 | Discharge Instructions ---
Discharge Instructions Date of Service Jul 17, 2017. Admission Reason for Admission: apparent seizure . Discharge Discharge Diagnosis / Problem: apparent seizure Discharge Goals Goal(s): Improve disease control Activity Recommendations Activity Limitations: as noted below Driving or Machine Use: No driving until seizure-free for at least 6 months and cleared by Neurology. . Instructions / Follow-Up Instructions / Follow-Up FOLLOW-UP APPOINTMENTS: FAMILY MEDICINE Dr. Brown Please contact office tomorrow via [employer] and ask for an appt early next week. NEUROLOGY Barbara Gonzalez PA-C or Dr. Ricks. Office will contact you with appointment. Please ask Dr. Brown for referral if necessary. NEUROSURGERY Office will contact you with appointment. Please ask Dr. Brown for referral if necessary. ENDOCRINOLOGY Please ask Dr. Brown for referral. OTHER INSTRUCTIONS: Avoid excessive use of alcohol, caffeine, other stimulants. Take levetiracetam (Keppra) 500 mg twice a day until otherwise instructed. Per MARIA VICTORIA loyd, you may not drive until seizure-free for at least 6 months and cleared by Neurology. Do what you must to avoid low blood sugars. Seek medical attention if you have: * temperature above 101 * headache, visual changes, weakness, unsteady gait, recurrent seizures * abdominal pain, nausea, vomiting * any unanswered questions or concerns Call 911 if symptoms are severe. Call if you have any questions or problems. My cell # is [phone]. You can also reach a [facility] hospitalist on duty at [facility] 24 hours a day by calling [phone]. Please take good care of yourself. Demetris West . Current Hospital Diet Patient's current hospital diet: Regular Diet Discharge Diet Recommended Diet: Regular Diet Procedures Procedures Performed: CT head- no apparent abnormalities MRI brain- small growth left frontal lobe measuring 9 mm EEG- no apparent seizure activity at time of study Pending Studies Studies pending at discharge: no Medical Emergencies . Who to Call and When: Medical Emergencies: If at any time you feel your situation is an emergency, please call 911 immediately. . Non-Emergent Contact Non-Emergency issues call your: Primary Care Provider, Hospital Doctor, Neurologist . . "Provider Documentation" section prepared by Demetris West. . VTE Core Measure Inpt VTE Proph given/why not?: SCD's
[2017-07-17] MEDS ORDERED: LEVETIRACETAM 500 MG TAB PO SCH (21:00)
[2017-07-17] MEDS ORDERED: METOCLOPRAMIDE HCL 5 MG TAB PO SCH (21:00)
[2017-07-18] MEDS ORDERED: LEVETIRACETAM 500 MG TAB PO SCH ×2 (09:00)
--- NOTE | 2017-07-19 08:50 | Progress Note ---
Medicine Progress Note Date & Time of Visit: Jul 16, 2017 [late entry] Subjective Doing well. No seizures or seizure-like activity. No episodes of hypoglycemia. No headache. No cough or SOB. Initially seen around 13:00. Mother visiting and given update. Subsequently seen in evening after Neurology consultation. Rechecked in the evening. Doing well. Anxious to be discharged. . Objective Physical Exam: General- no distress Neck- supple Lungs- clear Heart- RRR Abdomen- + BS, soft, nontender Extremities- no pretibial edema or calf tenderness Neuro- alert . Assessment & Plan APPARENT SEIZURE History of hypoglycemia with episodes of decreased responsiveness. Episode day of admission not associated with hypoglycemia. Lytes normal. No alcohol or other substance abuse. No recent head injuries. CT head- negative MRI brain- 9 mm lesion left paracentral frontal lobe near vertex EEG- no apparent epileptogenic foci Seen in consultation by Neurology. 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 MR images forwarded to Neurosurgery at [facility] for their review. Patient discharged to home. She understands that she may not drive until seizure-free for 6 months. Arrangements to be made for Neurology and Neurosurgery follow-up. HISTORY RECURRENT HYPOGLYCEMIA Blood glucose 75 morning before apparent seizure and immediately after. History of recurrent hypoglycemia in past. Outpatient Endocrinology referral recommended. GASTROPARESIS Has undergone evaluation in the past. PCP arranging for GI follow-up. Continue metoclopramide. Noted that metoclopramide may lower seizure threshold, but patient is very symptomatic without it and Neurology feels that risk is low. DEPRESSION Continue sertraline. Noted that sertraline may lower seizure threshold, but Neurology feels that risk is low. VTE PROPHYLAXIS Low risk for VTE. Prophylaxis not indicated. DISPOSITION Discharge to home. Family Medicine follow-up with Dr. Brown. Follow-up with Neurology, Neurosurgery, Endocrinology, and GI to be arranged. . Procedures: CT head- negative MRI brain- 9 mm lesion left paracentral frontal lobe near vertex EEG- no apparent epileptogenic foci .
--- NOTE | 2017-07-19 08:53 | Discharge Summary ---
Discharge Summary Date of Service Jul 19, 2017. Discharge Summary Admission Date: Jul 16, 2017 at 19:33 Discharge Date: Jul 17, 2017 Discharge Disposition: Home Principal Diagnosis: seizure abnormal MRI brain (9 mm left frontal lesion) . Secondary Diagnoses/Problems: Chronic Medical Problems: (1) Depression with anxiety Status: Chronic (2) Gastroparesis Status: Chronic (3) GERD (gastroesophageal reflux disease) Status: Chronic (4) Hypoglycemia Status: Chronic (5) IBS (irritable bowel syndrome) Status: Chronic Surgical Problems: (1) H/O esophagogastroduodenoscopy Status: Chronic (2) S/P appendectomy Status: Chronic (3) S/P cholecystectomy Status: Chronic . Procedures: CT head- negative MRI brain- 9 mm lesion left paracentral frontal lobe near vertex EEG- no apparent epileptogenic foci . Consultations: Neurology . Medication Reconciliation New Medications: Levetiractam (Levetiracetam) 500 Mg Tab 500 MG PO BID, #60 TAB 11 Refills Continued Medications: Control Pills ( Control Pills) Tab 1 TAB PO HS, TAB Cholecalciferol (D 5000) 5,000 Unit Cap 1 TAB PO HS Erythromycin (Erythromycin) 250 Mg Cap 1-2 TABS PO BID PRN for Nausea or Vomiting Esomeprazole Magnesium (Nexium) 40 Mg Capcr 40 MG PO HS, CAP Ferrous Sulfate (Hm Iron Slow Release) 142 Mg Tab 1 TAB PO HS Metoclopramide Hcl (Reglan) 5 Mg Tab 5 MG PO HS, TAB Multivitamin (Multivitamin) Tab 1 TAB PO HS, TAB Ondansetron Hcl (Zofran) 4 Mg Tab 4 MG PO UD PRN for Nausea, TAB Potassium Chloride (K-Tabs) 10 Meq Tabcr 10 MEQ PO HS Sertraline (Zoloft) 100 Mg Tab 100 MG PO HS, TAB Admission Information HPI (per Admitting provider): This is a 22 y/o fmeale with PMH of gastroparesis, GERD, IBS, hypoglycemic episodes, who presents to the ED by ambulance for seizure like activity. Pt does not recall the episodes. She lasts remembers going to her 1st class today. Does not remember leaving 1st class and going to 2nd class. Pt states in her 2nd class her friend witnessed her standing up and laying herself on the floor. Per ER provider, EMS reported that classmates witnessed her having 10-15 minutes of seizure like activity. Reportedly when EMS arrived she was postictal then had additional 1.5 minutes of seizure activity. No meds were administered. There was no tongue biting or incontinence. Glucose was 71 in the field. The next thing patient remembers is awakening in the ambulance, feeling cold and tired. She reports feeling better after eating and resting in ER. She had not eaten anything earlier today. Pt has ongoing frequent nausea and vomiting, last episode 1-2 nights ago. Pt states 4 years ago she had weight loss and nausea and was diagnosed with gastroparesis. Has seen multiple GI providers, one being Sherine, does not recall others. Pt reports hypoglycemic episodes for past 2 years. She states every few weeks she feels lightheaded and clammy, lays herself down, ? loses consciousness, but starts to "come to" when she drinks orange juice. Her blood sugar is low with the episodes, 40 at the lowest. She states she has been worked up with EKG's and labs. Pt does not recall having a brain MRI in the past. No known hx of seizures. Pt has been stressed about exams this week but otherwise anxiety and depression have been controlled. Pt denies headache, neck pain or stiffness, vision change, focal weakness or numbness, fever, URI symptoms, cough, SOB, chest pain, palpitations abdominal pain, diarrhea, constipation, dysuria, frequency, urgency, arthralgias. Pt was hospitalized at [facility] in summer 2016 but does not recall the details. . Physical Exam (per Admitting): General Appearance: WD/WN, no apparent distress Head: normocephalic, atraumatic Eyes: normal inspection, PERRL, EOMI, sclerae normal ENT: normal ENT inspection (normal external ears, nose, lips), hearing grossly normal, pharynx normal, + pertinent finding (no evidence of tongue trauma) Neck: supple, trachea midline Respiratory/Chest: lungs clear, normal breath sounds, no respiratory distress, no accessory muscle use Cardiovascular: regular rate, rhythm, no murmur Abdomen/GI: normal bowel sounds, non tender, soft Extremities/Musculoskelatal: no calf tenderness, no pedal edema 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 Episode day of admission not associated with hypoglycemia. Lytes normal. No alcohol or other substance abuse. No recent head injuries. CT head- negative MRI brain- 9 mm lesion left paracentral frontal lobe near vertex EEG- no apparent epileptogenic foci Seen in consultation by Neurology. 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 MR images forwarded to Neurosurgery at [facility] for their review. Patient discharged to home. She understands that she may not drive until seizure-free for 6 months. Arrangements to be made for Neurology and Neurosurgery follow-up. HISTORY RECURRENT HYPOGLYCEMIA Blood glucose 75 morning before apparent seizure and immediately after. History of recurrent hypoglycemia in past. Outpatient Endocrinology referral recommended. GASTROPARESIS Has undergone evaluation in the past. PCP arranging for GI follow-up. Continue metoclopramide. Noted that metoclopramide may lower seizure threshold, but patient is very symptomatic without it and Neurology feels that risk is low. DEPRESSION Continue sertraline. Noted that sertraline may lower seizure threshold, but Neurology feels that risk is low. VTE PROPHYLAXIS Low risk for VTE. Prophylaxis not indicated. DISPOSITION Discharge to home. Family Medicine follow-up with Dr. Brown. Follow-up with Neurology, Neurosurgery, Endocrinology, and GI to be arranged. . Discharge Instructions Date of Service Jul 17, 2017. Admission Reason for Admission: apparent seizure . Discharge Discharge Diagnosis / Problem: apparent seizure Discharge Goals Goal(s): Improve disease control Activity Recommendations Activity Limitations: as noted below Driving or Machine Use: No driving until seizure-free for at least 6 months and cleared by Neurology. . Instructions / Follow-Up Instructions / Follow-Up FOLLOW-UP APPOINTMENTS: FAMILY MEDICINE Dr. Brown Please contact office tomorrow via [employer] and ask for an appt early next week. NEUROLOGY Barbara Gonzalez PA-C or Dr. Ricks. Office will contact you with appointment. Please ask Dr. Brown for referral if necessary. NEUROSURGERY Office will contact you with appointment. Please ask Dr. Brown for referral if necessary. ENDOCRINOLOGY Please ask Dr. Brown for referral. OTHER INSTRUCTIONS: Avoid excessive use of alcohol, caffeine, other stimulants. Take levetiracetam (Keppra) 500 mg twice a day until otherwise instructed. Per [place] law, you may not drive until seizure-free for at least 6 months and cleared by Neurology. Do what you must to avoid low blood sugars. Seek medical attention if you have: * temperature above 101 * headache, visual changes, weakness, unsteady gait, recurrent seizures * abdominal pain, nausea, vomiting * any unanswered questions or concerns Call 911 if symptoms are severe. Call if you have any questions or problems. My cell # is [phone]. You can also reach a [facility] hospitalist on duty at [facility] 24 hours a day by calling [phone]. Please take good care of yourself. Demetris West . Current Hospital Diet Patient's current hospital diet: Regular Diet Discharge Diet Recommended Diet: Regular Diet Procedures Procedures Performed: CT head- no apparent abnormalities MRI brain- small growth left frontal lobe measuring 9 mm EEG- no apparent seizure activity at time of study Pending Studies Studies pending at discharge: no Medical Emergencies . Who to Call and When: Medical Emergencies: If at any time you feel your situation is an emergency, please call 911 immediately. . Non-Emergent Contact Non-Emergency issues call your: Primary Care Provider, Hospital Doctor, Neurologist . . "Provider Documentation" section prepared by Demetris West. . VTE Core Measure Inpt VTE Proph given/why not?: SCD's . Additional Copies To Barbara Gonzalez PA-C; Barbara Ricks M.D.; King Brown M.D.( KIMBER[facility]
== END 2017-07-17 21:19 | disposition home or self-care (01) ==
LOC: EDBD 15:05 → C.EDA 15:08 → C.MED 19:33 → ENRESERV 19:56
PROVIDERS: ADMIT Hospitalist; ATTEND Hospitalist
DX: R56.9 Unspecified convulsions (principal); R93.8 Abnormal findings on diagnostic imaging of other specified body structures; F32.9 Major depressive disorder, single episode, unspecified; K31.84 Gastroparesis; K21.9 Gastro-esophageal reflux disease without esophagitis; E16.2 Hypoglycemia, unspecified; Z90.49 Acquired absence of other specified parts of digestive tract; F17.200 Nicotine dependence, unspecified, uncomplicated; F12.90 Cannabis use, unspecified, uncomplicated; Z90.89 Acquired absence of other organs; Z79.899 Other long term (current) drug therapy; Z79.3 Long term (current) use of hormonal contraceptives